=== PATIENT | male | born 1980 | race Caucasian/White ===

== ENCOUNTER 2020-08-25 14:33 | Emergency (ER) | payer OTHER ==
[~2020-08-25] VITALS: Ht 175.3 cm; Wt 122.5 kg
[2020-08-25 16:07] LABS: ABSOLUTE NEUTROPHILS 5.8 thou/uL (1.4-8.2); BASOPHILS 0.5 % (0.0-2.0); EOSINOPHILS 3.8 % (0.0-3.0); HEMATOCRIT 40.5 % (42.0-52.0); HEMOGLOBIN 13.9 gm/dL (14.0-18.0); LYMPHOCYTES 20.4 % (24.0-44.0); MCHC 34.2 g/dL (28.0-37.0); MCV 90.5 fL (80.0-100.0); MONOCYTES 8.3 % (1.0-8.0); PLATELET COUNT 258 thou/uL (150-400); RBC 4.48 mil/uL (4.50-6.00); RDW 13.1 % (10.5-14.5); WBC 8.7 thou/uL (4.0-11.0)
[2020-08-25 16:24] LABS: ANION GAP 8 mmol/L (7-16); BUN 11 mg/dL (7-18); CALCIUM 8.8 mg/dL (8.5-10.1); CHLORIDE 103 mmol/L (98-107); CO2 27 mmol/L (21-32); CREATININE 0.9 mg/dL (0.7-1.3); GLUCOSE 94 mg/dL (74-106); POTASSIUM 3.7 mmol/L (3.5-5.1); SODIUM 138 mmol/L (136-145)
[2020-08-25 16:35] LABS: ALBUMIN 3.8 g/dL (3.4-5.0); LIPASE 132 U/L (73-393); MAGNESIUM 2.1 mg/dL (1.8-2.4); SGOT 76 U/L (15-37); SGPT 129 U/L (30-65); TOTAL BILIRUBIN 0.3 mg/dL (0.2-1.0); TOTAL PROTEIN 8.4 g/dL (6.4-8.2); TROPONIN-I <0.06 ng/mL (<0.06)
--- NOTE | 2020-08-25 16:39 | EKG ---
[facility] [place] [address] ELECTROCARDIOGRAM REPORT Name: LUIS JOSE Room #: REG [facility].#: [id number] Admission: 08/25/20 Attend Phys: Discharge: Date of : 82 Report #: [id number] THIS REPORT FOR: cc: LYLY Arreola family physician/PCP LYLY Arreola family physician/PCP Duke Callahan MD [facility] ~ THIS REPORT FOR: //name// [facility] ED Test Date: 2020-08-25 Test Time: 16:08:38 Pat Name: LUIS JOSE Department: Room: Gender: M [employer] Beverage Attendant: : 1980 Requested By: Zain Moore Order Number: [id number] MD: Duke Callahan Measurements Intervals [place] Rate: 69 P: 42 ME: 155 QRS: -12 QRSD: 96 T: 6 QT: 415 QTc: 445 Interpretive Statements Sinus rhythm Probable left ventricular hypertrophy No previous ECG available for comparison Electronically Signed On 08-25-2020 16:39:07 CDT by Duke Callahan [email or web address] <ELECTRONICALLY SIGNED> By: Duke Callahan MD, FAC 08/25/20 1639 1608 07 Duke Callahan MD, FACC /EPI
[2020-08-25 18:09] LABS: URINE BILIRUBIN NEGATIVE (Negative); URINE BLOOD 3+ (Negative); URINE CLARITY CLEAR; URINE COLOR YELLOW; URINE GLUCOSE-RANDOM* NEGATIVE (Negative); URINE KETONES NEGATIVE (Negative); URINE LEUKOCYTES-REFLEX NEGATIVE (Negative); URINE NITRITE-REFLEX NEGATIVE (Negative); URINE PROTEIN (DIPSTICK) NEGATIVE (Negative)
[2020-08-25 18:14] LABS: SQUAMOUS None Seen /LPF (0-3)
[2020-08-25 18:15] LABS: BACTERIA-REFLEX 1-9 Few /HPF (None Seen); CASTS None Seen /LPF (None Seen); CRYSTALS None Seen /LPF (None Seen); URINE WBC-REFLEX None Seen /HPF (0-5)
[2020-08-25] MEDS ORDERED: ATIVAN1 M1 PO (18:52)
[2020-08-25 19:04] VITALS: BP 121/81
== END 2020-08-25 19:05 | disposition home or self-care (01) ==
LOC: ER 14:33
PROVIDERS: Physician Assistant
DX: F41.9 Anxiety disorder, unspecified (principal); F43.9 Reaction to severe stress, unspecified; R07.9 Chest pain, unspecified; R06.02 Shortness of breath; R42 Dizziness and giddiness; R00.2 Palpitations; R20.0 Anesthesia of skin; R20.2 Paresthesia of skin; H53.8 Other visual disturbances; F17.210 Nicotine dependence, cigarettes, uncomplicated